=== PATIENT | male | born 1955 | race Caucasian/White ===

== ENCOUNTER 2017-10-12 06:47 | Day surgery (SDC) | payer OTHER ==
[~2017-10-12] VITALS: Ht 170.2 cm; Wt 69.0 kg
[~2017-10-12 06:47] MED LIST: CAPECITABINE500 MG PO; FLOMAX0.4 MG PO; FOLIC ACID1 MG PO; LOPERAMIDE2 MG PO; MOTRIN IB200 MG PO; VITAMIN B COMP1 EACH PO; VITAMIN D2000 UNIT PO
--- NOTE | 2017-10-12 07:48 | NUR ---
PT SITTING UP IN BED-ALERT, ORIENTED AND SUPPORTED BY HIS . PT IS VERY SHORT AND TO THE POINT-DOES NOT NEED VISIT, DOING OK. GAVE BLESSING WILL FOLLOW NEEDED
--- NOTE | 2017-10-12 08:50 | NUR ---
10/12/17 0850 Chioma Morales 0830- AT BEDSIDE. 0845- AT BEDSIDE.
--- NOTE | 2017-10-12 11:19 | OR ---
[facility] [address] [place], [place] [address] Signed DATE OF OPERATION: 10/12/2017 SURGEON: Kezia Sweeney MD PREOPERATIVE DIAGNOSES: 1. History of very low rectal cancer, status post neoadjuvant chemoradiation therapy and very low anterior resection with side-to-end coloanal anastomosis. 2. Episodic rectal bleeding. 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 PROCEDURE: Total colonoscopy to cecum with biopsies. SURGEON: Kezia Sweeney MD ANESTHESIA: Intravenous sedation; fentanyl 100 mcg, Versed 4 mg. INDICATION: This 62-year-old white man is a patient of Dr. Walls, currently; previously Dr. Best and also Dr. Godinez. He was found to have a low rectal cancer in 2016 and underwent neoadjuvant chemoradiation therapy and subsequently very low anterior resection by me with side-to-end coloanal anastomosis. He showed no evidence of recurrent disease. He has had episodic rectal bleeding and does have some bowel issues requiring loperamide and fiber supplements and so on. He is highly functional, still working and doing well overall. He is here for surveillance colonoscopy, understood the risks of bleeding, infection, and perforation. He has had episodic rectal bleeding, he says. He understood the risks of bleeding, infection, and perforation related to colonoscopy and wished to proceed. FINDINGS: The prep was adequate with irrigation. I suspect he did not fully go on a low-fiber diet. He did have mild proctitis and the low coloanal anastomosis did have slight stricturing, but easily accommodated the index finger, though was slightly uncomfortable. Biopsies were taken of the low rectum (neorectum) and coloanal anastomotic areas, there was inflammation. The remaining colon showed no sign of polyps or cancer. Electronically Signed By: KEZIA SWEENEY MD 10/12/17 1119 PATIENT NAME: SIMI FRANCO OPERATIVE REPORT DATE OF : 57 PHYSICIAN: KEZIA SWEENEY MD REPORT #: [id number] REPORT IS CONFIDENTIAL AND NOT TO BE RELEASED WITHOUT AUTHORIZATION [facility] [address] [place], [place] [address] Signed DESCRIPTION OF PROCEDURE: The patient was brought to endoscopy suite and placed in lateral decubitus position given intravenous sedation to the point of slurred speech and nystagmus. Digital rectal examination was gently undertaken, which was mildly uncomfortable. There was some narrowing of the coloanal anastomosis, but not surprising considered in the low level of the anastomosis. An Olympus video colonoscope was passed in the rectum and manipulated into the colon. A side-to-end coloanal anastomosis was noted. Mild inflammation was noted of the lowest portion of the neorectum. Scope was advanced to the cecum without problem and irrigation undertaken upon withdrawal of scope. Throughout the colon, there was no sign of polyp or stricture. Retroflexed view in the rectum was not forthcoming given the anatomy, but biopsies were obtained of the low rectum and the coloanal anastomosis. The scope was removed and the patient was taken to recovery room in good condition. CONCLUDING DIAGNOSIS: Mild inflammation of the lowest portion of the neorectum and anastomotic area. PLAN: He will see us back in about 4 weeks and review his pathology reports and otherwise entertain his issues of bowel function currently. Kezia Sweeney MD JM/MODL /[id number] cc: MD Javad Tom MD Electronically Signed By: KEZIA SWEENEY MD 10/12/17 1119 PATIENT NAME: SIMI FRANCO OPERATIVE REPORT DATE OF : 57 PHYSICIAN: KEZIA SWEENEY MD REPORT #: [id number] REPORT IS CONFIDENTIAL AND NOT TO BE RELEASED WITHOUT AUTHORIZATION [facility] [address] [place], [place] [address] Signed Ashkan Walls MD Electronically Signed By: KEZIA SWEENEY MD 10/12/17 1119 PATIENT NAME: SIMI FRANCO OPERATIVE REPORT DATE OF : 57 PHYSICIAN: KEZIA SWEENEY MD REPORT #: [id number] REPORT IS CONFIDENTIAL AND NOT TO BE RELEASED WITHOUT AUTHORIZATION
== END 2017-10-12 09:00 | disposition home or self-care (01) ==
LOC: DS 06:47 → OPS 06:47
PROVIDERS: Surgery
PROC: 0DBP8ZX Excision of Rectum, Via Natural or Artificial Opening Endoscopic, Diagnostic (ICD-10-PCS; principal; 2017-10-12 06:45)
DX: K52.9 Noninfective gastroenteritis and colitis, unspecified (principal); K91.89 Other postprocedural complications and disorders of digestive system; K62.89 Other specified diseases of anus and rectum; Z93.2 Ileostomy status; Z98.890 Other specified postprocedural states; Z85.048 Personal history of other malignant neoplasm of rectum, rectosigmoid junction, and anus; Z79.899 Other long term (current) drug therapy
CPT/HCPCS: 99152; 99153; J2250; J3010; J7120

== ENCOUNTER 2019-12-05 06:35 | Day surgery (SDC) | payer OTHER ==
[~2019-12-05] VITALS: Ht 167.6 cm; Wt 70.3 kg
[~2019-12-05 06:35] MED LIST changes: +CITRUCEL500 MG PO; +METAMUCIL0.52 GM PO
--- NOTE | 2019-12-05 08:15 | NUR ---
12/05/19 0814 Indira Ramirez 0808- PT ARRIVES TO PACU AROUSABLE TO VOICE, DOES NOT ANSWER QUESTIONS AT THIS TIME AND FALLS RIGHT BACK TO SLEEP. RESP EVEN AND UNLABORED. OXYGEN SAT HIGH 90'S TO 100% ON 2L VIA NC. 0811- PT ASKED TO ROLL TO HIS BACK HIS BP CUFF IS ON HIS RIGHT ARM AND HE IS LAYING ON HIS LEFT SIDE. SYSTOLIC BP IS LOW. PT REPORTS NO DIZZINESS OR NAUSEA. PT IS ABLE TO ROLL HIMSELF. TOLERATED WELL.
--- NOTE | 2019-12-06 14:28 | PATH ---
[facility] [address] [place], [place] [address] Signed SPECIMEN(S): A NEORECTUM SPECIMEN SOURCE: A. NEORECTUM CLINICAL HISTORY: History of low anterior resection for rectal CA. MICROSCOPIC DESCRIPTION: Histologic sections of all submitted blocks are examined by light microscopy. These findings, together with the gross examination, support the pathologic diagnosis. FINAL PATHOLOGIC DIAGNOSIS: Mucosa, neorectum, biopsy: - No microscopic pathologic diagnosis - Negative for malignancy and atypia. LJA:emb:C2NR GROSS DESCRIPTION: The specimen, labeled "TP, neorectum," is received in formalin and consists of five pink-loco soft tissue fragment(s) that measure 0.1-0.2 cm in greatest dimension. The specimen is entirely submitted in cassette (A1). JS (under the direct supervision of a pathologist) The Gross Description was prepared using a voice recognition system. The report was reviewed for accuracy; however, sound-alike word errors, addition and/or deletions may occur. If there is any question about this report, please contact Client Services. PERFORMING LABORATORY: The technical component was performed by [employer], [address] [place] [address] (Assistant Brand Manager: Germaine Broussard MD; CLIA# [id number]). [facility] was [facility] by [facility], [address] [address] (CLIA# [id number]). Diagnostician: Pepe Husain MD Pathologist Electronically Signed 12/06/2019 PATIENT NAME: SIMI FRANCO PATHOLOGY DATE OF : 57 REPORT #: [id number] PHYSICIAN: CHAIM PATHOLOGY PCP: HUNTER CHONG MD REPORT IS CONFIDENTIAL AND NOT TO BE RELEASED WITHOUT AUTHORIZATION [address] [place], [place] [address] Signed Copies: ~ PATIENT NAME: SIMI FRANCO PATHOLOGY DATE OF : 57 REPORT #: [id number] PHYSICIAN: CHAIM PATHOLOGY PCP: HUNTER CHONG MD REPORT IS CONFIDENTIAL AND NOT TO BE RELEASED WITHOUT AUTHORIZATION
--- NOTE | 2019-12-06 15:12 | OR ---
[facility] [address] [place], [place] [address] Signed DATE OF OPERATION: 12/05/2019 SURGEON: Kezia Sweeney MD PREOPERATIVE DIAGNOSIS: History of very low anterior resection for low rectal cancer in 2016 following neoadjuvant chemoradiation therapy. POSTOPERATIVE DIAGNOSES: 1. Low-grade anal stenosis, no evidence of recurrent cancer or polyps. 2. Mild low neorectal inflammation. PROCEDURE: Total colonoscopy to cecum with biopsy. ANESTHESIA: Intravenous sedation, fentanyl 100 mcg, and versed 5 mg. INDICATION: This 64-year-old white man is a patient of Dr. Walls and Dr. Nogueira. He was diagnosed in late 2014 with a low rectal cancer. He underwent neoadjuvant chemoradiation therapy under the direction of Dr. Nogueira and Dr. Bello, and subsequently very low anterior resection on November 16, 2015, with a side-to-end coloanal anastomosis. He had takedown of protective loop ileostomy in December of 2015. He completed his chemotherapy as well. He remains disease-free and high functioning. Does have some episodes of fecal urgency and sometimes constipation, and is not completely free of anorectal symptoms in that regard. He is here for surveillance colonoscopy. He understands the risk of bleeding, infection, and perforation related to colonoscopy and wished to proceed. FINDINGS: Low-grade to moderate grade anal stenosis was noted. Digital examination broke down the stenosis to a degree. Colonoscopy was undertaken to the cecum. There was no sign of polyps or recurrent cancer. He had mild low-grade inflammation of the colon proximal to the anastomosis. The anastomosis was widely patent. DESCRIPTION OF PROCEDURE: The patient was brought to the endoscopy suite and placed in lateral decubitus position given intravenous sedation to the point of slurred speech and nystagmus. Digital rectal examination was undertaken, confirming a [id number]-hhxyecel anal stenosis. A stricture Electronically Signed By: KEZIA WSEENEY MD 12/06/19 1512 PATIENT NAME: SIMI FRANCO OPERATIVE REPORT DATE OF : 57 REPORT #: [id number] PHYSICIAN: KEZIA SWEENEY MD PCP: HUNTER CHONG MD REPORT IS CONFIDENTIAL AND NOT TO BE RELEASED WITHOUT AUTHORIZATION [facility] [address] [place], [place] [address] Signed like finding was broken down with digital examination alone. An Olympus video colonoscope was passed in the rectum and manipulated throughout the colon ultimately intubating the cecum itself. The prep was adequate. The scope was withdrawn from the cecum and careful examination showed no sign of polyps or other abnormality until the lowest portion where there is mild low-grade inflammation proximal to the anastomosis. This was biopsied. The anastomosis was widely patent and a side-to-end coloanal anastomosis was confirmed. Biopsies were taken on distal aspect of the anastomosis as well. The tissue was somewhat friable. Scope was removed and the patient taken to recovery room in good condition. CONCLUDING DIAGNOSIS: No evidence of recurrent cancer or polyps. PLAN: Would recommend repeat colonoscopy in one year. We will keep an eye on the low-grade anal stenosis. A program of anal dilation would be a consideration if his symptoms should not be tolerable, though it is unlikely he would want to do that. I reviewed this with his as well. Kezia Sweeney MD JM/MODL /[id number] cc: MD Ashkan Tom MD Copies: DIA NOGUEIRA MD, MALCOLM MD ~ Electronically Signed By: KEZIA SWEENEY MD 12/06/19 1512 PATIENT NAME: SIMI FRANCO OPERATIVE REPORT DATE OF : 57 REPORT #: [id number] PHYSICIAN: KEZIA SWEENEY MD PCP: HUNTER CHONG MD REPORT IS CONFIDENTIAL AND NOT TO BE RELEASED WITHOUT AUTHORIZATION
== END 2019-12-05 08:50 | disposition home or self-care (01) ==
LOC: OPS 06:35 → DS 06:35 → OPS 06:45
PROVIDERS: Surgery
PROC: 0DBP8ZX Excision of Rectum, Via Natural or Artificial Opening Endoscopic, Diagnostic (ICD-10-PCS; principal; 2019-12-05 06:45)
DX: K62.4 Stenosis of anus and rectum (principal); K52.9 Noninfective gastroenteritis and colitis, unspecified; K59.00 Constipation, unspecified; Z79.899 Other long term (current) drug therapy; Z85.048 Personal history of other malignant neoplasm of rectum, rectosigmoid junction, and anus; Z90.49 Acquired absence of other specified parts of digestive tract; Z92.3 Personal history of irradiation; Z92.21 Personal history of antineoplastic chemotherapy; Z98.890 Other specified postprocedural states
CPT/HCPCS: 99153; G0500; J2250; J3010; J7121

== ENCOUNTER 2020-12-03 07:31 | Day surgery (SDC) | payer OTHER ==
[~2020-12-03] VITALS: Ht 167.6 cm; Wt 68.0 kg
--- NOTE | 2020-12-03 08:52 | NUR ---
12/03/20 0852 Indira Ramirez 0847- PT ARRIVES TO ROOM #10 FOR RECOVERY. PT IS ALERT AND REPORTING NO PAIN OR NAUSEA. RESP EVEN AND UNLABORED. OXYGEN SAT HIGH 90'S TO 100% ON 2L VIA NC.
--- NOTE | 2020-12-05 11:55 | PATH ---
[facility] [address] [place], [place] [address] Signed SPECIMEN(S): A LOW RECTUM SPECIMEN SOURCE: A. LOW RECTUM CLINICAL HISTORY: History of rectal carcinoma. MICROSCOPIC DESCRIPTION: Histologic sections of all submitted blocks are examined by light microscopy. These findings, together with the gross examination, support the pathologic diagnosis. FINAL PATHOLOGIC DIAGNOSIS: Low rectum, biopsy: - Rectal mucosa with no histopathologic abnormality. - Negative for dysplasia or malignancy. NAL:[facility]:C2NR GROSS DESCRIPTION: The specimen, labeled "Carlos Zuniga, #1," and designated on the requisition "lower rectum biopsy," is received in formalin and consists of four loco soft tissue fragments that measure 0.3 to 0.4 cm in greatest dimension. The specimen is entirely submitted in cassette (A1). FB (under the direct supervision of a pathologist) The Gross Description was prepared using a voice recognition system. The report was reviewed for accuracy; however, sound-alike word errors, addition and/or deletions may occur. If there is any question about this report, please contact Client Services. PERFORMING LABORATORY: The technical component was performed by [facility], [address] [place] [id number] ([employer]: Germiane Broussard MD; CLIA# [id number]). [facility], [address] [address] (CLIA# [id number]). Diagnostician: Naye Graham MD Pathologist Electronically Signed 12/05/2020 PATIENT NAME: CARLOS ZUNIGA PATHOLOGY DATE OF : 57 REPORT #: [id number] PHYSICIAN: CHAIM PATHOLOGY PCP: HUNTER CHONG MD REPORT IS CONFIDENTIAL AND NOT TO BE RELEASED WITHOUT AUTHORIZATION [address] [place] [address] Signed Copies: ~ PATIENT NAME: CARLOS ZUNIGA PATHOLOGY DATE OF : 57 REPORT #: [id number] PHYSICIAN: CHAIM PATHOLOGY PCP: HUNTER CHONG MD REPORT IS CONFIDENTIAL AND NOT TO BE RELEASED WITHOUT AUTHORIZATION
--- NOTE | 2020-12-06 17:33 | OR ---
[facility] [address] [place], [place] [address] Signed DATE OF OPERATION: 12/03/2020 SURGEON: Kezia Sweeney MD PREOPERATIVE DIAGNOSES: History of low rectal cancer, status post neoadjuvant chemoradiation therapy and subsequent resection with side-to-end coloanal anastomosis in 2016. POSTOPERATIVE DIAGNOSES: Hypertrophied mucosa just proximal to coloanal anastomosis (excised), otherwise normal. PROCEDURE: Total colonoscopy to cecum with cold morcellation biopsies. ANESTHESIA: Intravenous sedation, fentanyl 100 mcg and Versed 4 mg. INDICATION: This 65-year-old white man is a patient of Dr. Walls and Dr. Nogueira and previously Dr. Bello, radiation therapist. He was found to have a low rectal cancer and underwent neoadjuvant chemoradiation therapy and subsequently resection by me in 2016 with side-to-end coloproctostomy (very low anastomosis). He has had annual colonoscopy and has been free of any sign of recurrent disease. He is now five years and would be considered a "cured" generally speaking. Colonoscopy is recommended at this time for surveillance. He understands the risks of bleeding, infection, and perforation related to colonoscopy and wished to proceed. FINDINGS: He had mild anal stenosis, which was easily made very open with digital examination alone. Colonoscopy was undertaken of the cecum and he had a good prep. The coloanal (low colorectal) anastomosis was widely patent. There was hypertrophied mucosa just proximal to the anastomosis, which was completely excised endoscopically. There were no other findings of concern. DESCRIPTION OF PROCEDURE: The patient was brought to the endoscopy suite and placed in lateral decubitus position, given intravenous sedation to the point of slurred speech and nystagmus. It is noted that he tested positive on his COVID screening test though the patient did suffer COVID infection 89 days ago, having rather few manifestations and recovering fully from a clinical standpoint. He has no associated fever, cough, shortness of breath, taste Electronically Signed By: KEZIA SWEENEY MD 12/06/20 1733 PATIENT NAME: SIMI FRANCO OPERATIVE REPORT DATE OF : 57 REPORT #: [id number] PHYSICIAN: KEZIA SWEENEY MD PCP: HUNTER CHONG MD REPORT IS CONFIDENTIAL AND NOT TO BE RELEASED WITHOUT AUTHORIZATION [facility] [address] [place], [place] [address] Signed aberration or other abnormality. On that basis, colonoscopy proceeded of course. After satisfactory sedation with full cardiopulmonary monitoring, digital rectal examination was undertaken showing a somewhat stenotic anorectal area concurrent to the anastomosis. This was easily made larger with digital examination alone. The Olympus video colonoscope was passed in the rectum and manipulated throughout the colon ultimately intubating the cecum itself. Ileocecal valve was normal. The scope was withdrawn from that point and examination throughout was undertaken showing no sign of polyps or diverticular formation. Just proximal to the coloproctostomy, anastomosis was an area of hypertrophied mucosa. It did not appear adenomatous and likely represented recurrence or malignancy in any way. Nevertheless, it was excised with cold morcellation technique completely. Photographs were taken. The scope was withdrawn a bit more and the anastomosis was noted to be widely patent. The side-to-end coloproctostomy had been performed and visualized, anatomy was consistent with that. The lowest portion of the rectum just proximal to the dentate line was normal. Scope was removed and the patient was taken to the recovery room in good condition. CONCLUDING DIAGNOSIS: Hypertrophied mucosa just proximal to the coloanal anastomosis. Low-grade anal stenosis easily improved by digital examination. PLAN: We will check pathology report. I would recommend a repeat colonoscopy in 3 years sooner if symptoms should occur or adverse pathology be found from the biopsies today. Kezia Sweeney MD /MODL /[id number] cc: MD Dia Lucio MD Copies: CARLIE WALLS MD Electronically Signed By: KEZIA SWEENEY MD 12/06/20 1733 PATIENT NAME: SIMI FRANCO OPERATIVE REPORT DATE OF : 57 REPORT #: [id number] PHYSICIAN: KEZIA SWEENEY MD PCP: HUNTER CHONG MD REPORT IS CONFIDENTIAL AND NOT TO BE RELEASED WITHOUT AUTHORIZATION [facility] [address] [place], [place] [address] Signed DIA NOGUEIRA MD ~ Electronically Signed By: KEZIA SWEENEY MD 12/06/20 1733 PATIENT NAME: SALVADORSIMI FINA OPERATIVE REPORT DATE OF : 57 REPORT #: [id number] PHYSICIAN: KEZIA SWEENEY MD PCP: HUNTER CHONG MD REPORT IS CONFIDENTIAL AND NOT TO BE RELEASED WITHOUT AUTHORIZATION
== END 2020-12-03 09:25 | disposition home or self-care (01) ==
LOC: OPS 07:31 → DS 07:34 → OPS 08:30
PROVIDERS: ATTEND Surgery
PROC: 0DBP8ZZ Excision of Rectum, Via Natural or Artificial Opening Endoscopic (ICD-10-PCS; principal; 2020-12-03 08:30)
DX: K62.89 Other specified diseases of anus and rectum (principal); K62.4 Stenosis of anus and rectum; Z85.048 Personal history of other malignant neoplasm of rectum, rectosigmoid junction, and anus; Z92.21 Personal history of antineoplastic chemotherapy; Z90.49 Acquired absence of other specified parts of digestive tract; Z86.16 Personal history of COVID-19; Z92.3 Personal history of irradiation
CPT/HCPCS: 99153; G0500; J2250; J3010; J7121

== ENCOUNTER 2023-09-28 06:35 | Day surgery (SDC) | payer MEDICARE, OTHER ==
[~2023-09-28] VITALS: Ht 167.6 cm; Wt 68.2 kg
[2023-09-28 06:55] VITALS: BP 157/98
--- NOTE | 2023-09-28 08:14 | NUR ---
09/28/23 0814 Elvira Arthur 0807- PT ARRIVES TO PACU, LEFT LATERAL SEMI MENDEZ POSITION. PT AWAKE BUT DROWSY ON ARRIVAL. DENIES PAIN AND NAUSEA. ENCOURAGED TO PASS GAS, ABD SOFT NON DISTENDED. LR INFUSING TO RFA IV, O2 AT 3L PER NC. ALL MONITORS IN PLACE. NO SIGNS OF DISTRESS.
[2023-09-28 08:46] VITALS: BP 117/79
--- NOTE | 2023-09-28 09:35 | OR ---
[facility] [address] [place], [place] [address] Signed DATE OF OPERATION: 09/28/2023 SURGEON: Kezia Sweeney MD PREOPERATIVE DIAGNOSES: 1. Very low rectal cancer in 2016, status post neoadjuvant chemoradiation therapy and subsequent low anterior resection with coloanal anastomosis. 2. Diarrhea, well controlled with loperamide and fiber supplement. POSTOPERATIVE DIAGNOSIS: No evidence of polyps; mild proctitis and mild anal stenosis. PROCEDURE: Total colonoscopy to cecum with biopsy of neorectum. ANESTHESIA: Intravenous sedation fentanyl 100 mcg and Versed 5 mg. INDICATION: This 68-year-old white man is a patient of Dr. Figueroa and Dr. Nogueira. He was discovered to have a low rectal cancer in 2015, underwent chemoradiation neoadjuvant therapy and subsequent resection, ultimately resulting in a coloanal anastomosis. He did well from that and has had no evidence of recurrence now more than five years since operation. He does control some diarrhea and other anorectal complaints with fiber supplements as well as loperamide. He has had no blood per rectum or other problem in recent times. FINDINGS: The prep was adequate. Complete colonoscopy was undertaken of the cecum. There was no evidence of polyps or recurrent cancer. There was mild anal stenosis on digital exam, which was essentially the coloanal anastomosis and mild proctitis. Biopsies were obtained. There were no other findings of concern. PROCEDURE IN DETAIL: The patient was brought to the endoscopy suite and placed in lateral decubitus position, given intravenous sedation to the point of slurred speech and nystagmus. Full cardiopulmonary monitoring was maintained. Digital rectal examination demonstrated anal stenosis which essentially was coloanal anastomotic stricturing which was low-grade. Slow dilation with index finger allowed for passage of the colonoscope. The scope was passed into the neorectum and manipulated throughout the colon ultimately intubating the Electronically Signed By: KEZIA SWEENEY MD 09/28/23 0935 PATIENT NAME: SIMI FRANCO OPERATIVE REPORT DATE OF : 57 REPORT #: [id number] PHYSICIAN: KEZIA SWEENEY MD PCP: LILIA FIGUEROA MD REPORT IS CONFIDENTIAL AND NOT TO BE RELEASED WITHOUT AUTHORIZATION [facility] [address] [place], [place] [address] Signed cecum itself. Irrigation was undertaken. The scope was then withdrawn. Examination throughout showed no sign of polyps or other adverse findings. In the low neorectum, the side-to-end coloanal anastomosis was well visualized and showed mild inflammatory changes. Biopsies were obtained. The scope was removed. The patient was taken to the recovery room in good condition. CONCLUDING DIAGNOSES: 1. No evidence of recurrent cancer or polyps. 2. Anal stenosis (anastomotic stenosis, mild). PLAN: Would continue current regimen, which is functionally optimal for him, which includes loperamide and fiber supplementation. Would recommend repeat colonoscopy in 1-2 years, sooner if symptoms should develop include worsening of any anastomotic narrowing. MD GRAEME Grimes/DIPIKA /[id number] cc: MD Dr. Carolina Tom Copies: DIA NOGUEIRA MD ~ Electronically Signed By: KEZIA SWEENEY MD 09/28/23 0935 PATIENT NAME: SIMI FRANCO OPERATIVE REPORT DATE OF : 57 REPORT #: [id number] PHYSICIAN: KEZIA SWEENEY MD PCP: LILIA FIGUEROA MD REPORT IS CONFIDENTIAL AND NOT TO BE RELEASED WITHOUT AUTHORIZATION
--- NOTE | 2023-10-02 15:22 | PATH ---
[facility] [address] [place], [place] [address] Signed SPECIMEN(S): A KELIN RECTUM BX SPECIMEN SOURCE: A. KELIN RECTUM BX CLINICAL HISTORY: Colonoscopy. Rectal cancer-2016 FINAL PATHOLOGIC DIAGNOSIS: Neorectum, biopsy: - Mucosal muciphage collections. COMMENT: Mucosal muciphage collections consist of aggregates of mucin filled macrophages in the lamina propria. They often contain mucin. There are nonspecific markers of old injury. There is no evidence of acute inflammation at this time. TWK MICROSCOPIC EXAMINATION: Histologic sections of all submitted blocks are examined by light microscopy. These findings, together with the gross examination, support the pathologic diagnosis. GROSS DESCRIPTION: The specimen, labeled and designated "Efrain kelin rectum biopsy," is received in formalin and consists of two loco soft tissue fragments, ranging from 0.3-0.4 cm. Entirely submitted in (A1). VB (under the direct supervision of a pathologist) The Gross Description was prepared using a voice recognition system. The report was reviewed for accuracy; however, sound-alike word errors, addition and/or deletions may occur. If there is any question about this report, please contact Client Services. ADDITIONAL NOTES: Immunohistochemical and/or in situ hybridization studies if performed in this case included appropriate positive controls that reacted as expected. This test was developed and its performance characteristics determined by [facility]. It has not been cleared or approved by the U.S. Food and Drug Administration. The FDA has determined that such clearance or approval is not PATIENT NAME: SIMI FRANCO PATHOLOGY DATE OF : 57 REPORT #: [id number] PHYSICIAN: CHAIM LASSITER PCP: LILIA SANCHEZ MD REPORT IS CONFIDENTIAL AND NOT TO BE RELEASED WITHOUT AUTHORIZATION [place] [address] [facility] [place], [place] [address] Signed necessary. This test is used for clinical purposes. It should not be regarded as investigational or for research. [facility] is certified under the Clinical Laboratory Improvement Amendments of 1988 (CLIA) as qualified to perform high complexity clinical laboratory testing. PERFORMING LABORATORY: Technical component was performed by [facility], [address] [place] [address] (CLIA# [id number]). Professional interpretation was performed by [email or web address], [facility] [address] [address] (CLIA#:[id number]). Diagnostician: Price Torres MD Pathologist Electronically Signed 10/02/2023 Copies: ~ PATIENT NAME: SIMI FRANCO PATHOLOGY DATE OF : 57 REPORT #: [id number] PHYSICIAN: CHAIM LASSITER PCP: LILIA SANCHEZ MD REPORT IS CONFIDENTIAL AND NOT TO BE RELEASED WITHOUT AUTHORIZATION
== END 2023-09-28 08:53 | disposition home or self-care (01) ==
LOC: DS 06:35 → OPS 06:35 → DS 07:30 → OPS 07:30
PROVIDERS: ATTEND Surgery
PROC: 0DBP8ZX Excision of Rectum, Via Natural or Artificial Opening Endoscopic, Diagnostic (ICD-10-PCS; principal; 2023-09-28 07:30)
DX: K62.4 Stenosis of anus and rectum (principal); K62.89 Other specified diseases of anus and rectum
CPT/HCPCS: 88305; 99153; G0500; J2250; J3010; J7121